=== PATIENT | female | born 1935 | race Caucasian/White ===

== ENCOUNTER 2019-09-01 16:00 | Emergency (ER) | payer OTHER ==
--- NOTE | 2019-09-01 17:16 | RAD REPORT ---
EXAM DESCRIPTION: RAD - Foot Right 3 View - 09/01/2019 4:57 pm CLINICAL HISTORY: Right foot pain FINDINGS: No fracture or dislocation is seen Osteoporosis
[2019-09-01] MEDS ORDERED: ONDANSETRON 4 MG (ODT) TAB ONE (18:18)
[2019-09-01] MEDS ORDERED: TRAMADOL HCL 50 MG TAB ONE (18:19)
--- NOTE | 2019-09-01 18:55 | ER ---
Nurse's Notes [facility] Name: Iman Lagos Age: 84 yrs Sex: Female : 1935 Arrival Date: 09/01/2019 Time: 16:03 Bed 18 Private MD: Diagnosis: Pain in right foot Presentation: 09/01 16:13 Presenting complaint: Patient states: Right foot started hurting this morning, denies jl7 trauma. Transition of care: patient was not received from another setting of care. Onset of symptoms was September 01, 2019. Risk Assessment: Do you want to hurt yourself or someone else? Patient reports no desire to harm self or others. Initial Sepsis Screen: Does the patient meet any 2 criteria? No. Patient's initial sepsis screen is negative. Does the patient have a suspected source of infection? No. Patient's initial sepsis screen is negative. Care prior to arrival: None. 16:13 Method Of Arrival: Ambulatory jl 16:13 Acuity: FAHAD 4 jl7 16:16 Acuity: FAHAD 3 jl7 Triage Assessment: 16:15 General: Appears in no apparent distress. uncomfortable, Behavior is calm, cooperative, jl7 appropriate for age. Pain: Complains of pain in right foot Pain currently is 10 out of 10 on a pain scale. Historical: - Allergies: 16:15 Morphine; jl7 - Home Meds: 16:15 None [Active]; jl7 - PMHx: 16:15 Hypertension; jl7 - PSHx: 16:15 Tonsillectomy; Appendectomy; jl7 - Immunization history:: Adult Immunizations not up to date. - Social history:: Smoking status: Patient denies any tobacco usage or history of. - Ebola Screening: : No symptoms or risks identified at this time. Screenin:15 Abuse screen: Denies threats or abuse. Denies injuries from another. Nutritional bp screening: No deficits noted. Tuberculosis screening: No symptoms or risk factors identified. Fall Risk None identified. Assessment: 16:15 General: SEE TRIAGE NOTE. bp 17:07 Reassessment: XRAY COMPLETE, RESULTS PENDING. NO OBVIOUS S/S OF DISTRESS, VS STABLE. bp Vital Signs: 16:15 BP 197 / 73; Pulse 89; Resp 16 S; Temp 98.4(O); Pulse Ox 98% on R/A; Weight 46.27 kg jl7 (R); Height 5 ft. 2 in. (157.48 cm) (R); Pain 10/10; 18:22 BP 209 / 63; Pulse 81; Resp 16; Pulse Ox 100% ; bp 19:14 BP 173 / 65; Pulse 84; Resp 18; Pulse Ox 99% ; wh 16:15 Body Mass Index 18.66 (46.27 kg, 157.48 cm) 7 ED Course: 16:03 Patient arrived in ED. mr 16:14 Triage completed. jl7 16:15 Arm band placed on right wrist. jl7 16:15 Patient has correct armband on for positive identification. Bed in low position. Call bp light in reach. Side rails up X2. 16:18 Kleber Pearson, RN is Primary Nurse. bp 16:19 Don Kerr NP is PHCP. pm1 16:19 Justine Castellano MD is Attending Physician. pm1 16:57 Foot Right 3 View XRAY In Process Unspecified. EDMS 19:08 No provider procedures requiring assistance completed. Patient did not have IV access wh during this emergency room visit. Administered Medications: 18:15 Drug: traMADol 50 mg Route: PO; bp 19:07 Follow up: Response: No adverse reaction; Pain is decreased; RASS: Alert and Calm (0) 18:15 Drug: Zofran 4 mg Route: PO; bp 19:07 Follow up: Response: No adverse reaction; Nausea is decreased Outcome: 18:55 Discharge ordered by MD. pm1 19:08 Discharged to home via wheelchair, with family. 19:08 Condition: stable 19:08 Discharge instructions given to patient, family, Instructed on discharge instructions, follow up and referral plans. no drinking with medication, no driving heavy equipment, medication usage, POC Demonstrated understanding of instructions, follow-up care, medications, POC Prescriptions given X 2. 19:15 Patient left the ED. Signatures: Dispatcher [employer] EDMI Stephanie Rosa Don Kerr NP DETECTIVE AND INTELLIGENCE ANALYST pm1 Kim Infante, RN RN jl7 Yaneth Franco Kleber Pearson, RN RN bp
--- NOTE | 2019-09-01 18:55 | EDPHYS ---
Physician Documentation [facility] Name: Iman Lagos Age: 84 yrs Sex: Female : 1935 Arrival Date: 09/01/2019 Time: 16:03 Bed 18 Private MD: ED Physician Justine Castellano HPI: 09/01 18:11 This 84 yrs old Female presents to ER via Ambulatory with complaints of Right pm1 Foot Pain. 18:11 The patient presents with pain, that is acute. The complaints affect the right foot. pm1 Context: The problem was sustained at home, resulted from an unknown cause, the patient can partially bear weight, Problem is a result from a previous injury: No. Onset: The symptoms/episode began/occurred today. Modifying factors: The symptoms are alleviated by elevating leg, the symptoms are aggravated by weight bearing. Associated signs and symptoms: Pertinent positives: swelling, Pertinent negatives calf tenderness, nausea, numbness, tingling, vomiting. Treatment prior to arrival includes: no previous treatment. Severity of symptoms: in the emergency department the symptoms are unchanged. The patient has not experienced similar symptoms in the past. It is unknown whether or not the patient has recently seen a physician. Historical: - Allergies: 16:15 Morphine; jl7 - Home Meds: 16:15 None [Active]; jl7 - PMHx: 16:15 Hypertension; jl7 - PSHx: 16:15 Tonsillectomy; Appendectomy; jl7 - Immunization history:: Adult Immunizations not up to date. - Social history:: Smoking status: Patient denies any tobacco usage or history of. - Ebola Screening: : No symptoms or risks identified at this time. ROS: 18:11 Constitutional: Negative for fever, chills, and weight loss, Cardiovascular: Negative pm1 for chest pain, palpitations, and edema, Respiratory: Negative for shortness of breath, cough, wheezing, and pleuritic chest pain, Abdomen/GI: Negative for abdominal pain, nausea, vomiting, diarrhea, and constipation, Back: Negative for injury and pain. 18:11 Skin: Negative for injury, rash, and discoloration, Neuro: Negative for headache, weakness, numbness, tingling, and seizure. 18:11 MS/extremity: Positive for pain, swelling, of the dorsum of right foot, Negative for decreased range of motion, deformity. Exam: 18:11 Constitutional: This is a well developed, well nourished patient who is awake, alert, pm1 and in no acute distress. Head/Face: Normocephalic, atraumatic. Neck: Trachea midline, no thyromegaly or masses palpated, and no cervical lymphadenopathy. Supple, full range of motion without nuchal rigidity, or vertebral point tenderness. No Meningismus. Chest/axilla: Normal chest wall appearance and motion. Nontender with no deformity. No lesions are appreciated. Cardiovascular: Regular rate and rhythm with a normal S1 and S2. No gallops, murmurs, or rubs. No pulse deficits. Respiratory: Lungs have equal breath sounds bilaterally, clear to auscultation and percussion. No rales, rhonchi or wheezes noted. No increased work of breathing, no retractions or nasal flaring. Abdomen/GI: Soft, non-tender, with normal bowel sounds. No distension or tympany. No guarding or rebound. No evidence of tenderness throughout. Back: No spinal tenderness. No costovertebral tenderness. Full range of motion. Skin: Warm, dry with normal turgor. Normal color with no rashes, no lesions, and no evidence of cellulitis. 18:11 Musculoskeletal/extremity: Extremities: grossly normal except: noted in the dorsum of right foot: tenderness, mild swelling, There is no evidence of decreased ROM, deformity, tenderness with palpation to arch of right foot, Circulation is intact in all extremities. Pulses: noted to be 2+ in the right dorsalis pedis artery, Sensation intact. 18:11 Neuro: Orientation: is normal, Motor: is normal, moves all fours, strength is normal, strength is 5/5 in all extremities. Vital Signs: 16:15 BP 197 / 73; Pulse 89; Resp 16 S; Temp 98.4(O); Pulse Ox 98% on R/A; Weight 46.27 kg jl7 (R); Height 5 ft. 2 in. (157.48 cm) (R); Pain 10/10; 18:22 BP 209 / 63; Pulse 81; Resp 16; Pulse Ox 100% ; bp 19:14 BP 173 / 65; Pulse 84; Resp 18; Pulse Ox 99% ; wh 16:15 Body Mass Index 18.66 (46.27 kg, 157.48 cm) jl7 MDM: 16:36 Patient medically screened. pm1 18:11 Data reviewed: vital signs. Data interpreted: Pulse oximetry: on room air is 98 %. pm1 Interpretation: normal. 18:54 Counseling: I had a detailed discussion with the patient and/or guardian regarding: the pm1 historical points, exam findings, and any diagnostic results supporting the discharge/admit diagnosis, radiology results, the need for outpatient follow up, for definitive care, a psychological operations officer, to return to the emergency department if symptoms worsen or persist or if there are any questions or concerns that arise at home. 09/01 16:43 Order name: Foot Right 3 View XRAY; Complete Time: 17:23 pm1 Administered Medications: 18:15 Drug: traMADol 50 mg Route: PO; bp 19:07 Follow up: Response: No adverse reaction; Pain is decreased; RASS: Alert and Calm (0) 18:15 Drug: Zofran 4 mg Route: PO; bp 19:07 Follow up: Response: No adverse reaction; Nausea is decreased Disposition: 09/02 15:19 Co-signature as Attending Physician, Justine Castellano MD. ma2 Disposition: 09/01/19 18:55 Discharged to Home. Impression: Pain in right foot. - Condition is Stable. - Discharge Instructions: Plantar Fasciitis, Foot Pain. - Prescriptions for Zofran 4 mg Oral Tablet - take 1 tablet by ORAL route every 8 hours As needed; 20 tablet. Tramadol 50 mg Oral Tablet - take 1 tablet by ORAL route every 8 hours As needed as needed; 20 tablet. - Medication Reconciliation Form, Thank You Letter, Antibiotic Education, Prescription Opioid Use form. - Follow up: Emergency Department; When: As needed; Reason: Worsening of condition. Follow up: Private Physician; When: 2 - 3 days; Reason: Recheck today's complaints, Continuance of care, Re-evaluation by your physician. - Problem is new. - Symptoms have improved. Signatures: Dispatcher [employer] EDMS Don Kerr, DRIER AND GRINDER TENDER DRIER AND GRINDER TENDER pm1 Kim Infante RN RN jl7 Yaneth Franco Kleber Pearson RN RN bp Alzahri, Mohammad, MD MD ma2 Corrections: (The following items were deleted from the chart) 09/01 19:15 18:55 09/01/2019 18:55 Discharged to Home. Impression: Pain in right foot. Condition is wh Stable. Forms are Medication Reconciliation Form, Thank You Letter, Antibiotic Education, Prescription Opioid Use. Follow up: Emergency Department; When: As needed; Reason: Worsening of condition. Follow up: Private Physician; When: 2 - 3 days; Reason: Recheck today's complaints, Continuance of care, Re-evaluation by your physician. Problem is new. Symptoms have improved. pm1
[2019-09-01 19:25] VITALS: TEMP 98.4
[2019-09-01 19:28] VITALS: BP 173/65; O2SAT 99
== END 2019-09-01 19:15 | disposition home or self-care (01) ==
LOC: ER 16:00
DX: M79.671 Pain in right foot (principal); I10 Essential (primary) hypertension; Z88.5 Allergy status to narcotic agent
CPT/HCPCS: 99283

== ENCOUNTER 2022-07-21 06:31 | Day surgery (SDC) | payer OTHER ==
[2022-07-21] MEDS ORDERED: Ringers Lactate 1,000 ML IV ONE (06:48)
[2022-07-21] MEDS ORDERED: LIDOCAINE 1% MPF 5 ML VIAL ONE (07:25)
[2022-07-21] MEDS ORDERED: propofoL 200 MG/20 ML VIAL IV ONE (07:25)
--- NOTE | 2022-07-21 08:28 | ENDO RPT ---
[address], [address] EGD WITH DILATION PROCEDURE REPORT EXAM DATE: 07/21/2022 PATIENT NAME: Iman Lagos V. MR#: [id number] BIRTHDATE: 1935 ATTENDING: Watson [address] Dr STATUS: outpatient DOUGH MOLDER: Allegra Hannah and Flor Walker RN INDICATIONS: The patient is a 87 yr old Female here for an EGD with dilation due to odynophagia, globus - lump in throat, and weight loss PROCEDURE PERFORMED: EGD with biopsy and EGD with dilatation over guidewire MEDICATIONS: Per Anesthesia. TOPICAL ANESTHETIC: none CONSENT: The patient understands the risks and benefits of the procedure and understands that these risks include, but are not limited to: sedation, allergic reaction, infection, perforation and/or bleeding. Alternative means of evaluation and treatment include, among others: physical exam, x-rays, and/or surgical intervention. The patient elects to proceed with this endoscopic procedure. DESCRIPTION OF PROCEDURE: During intra-op preparation period all mechanical medical equipment was checked for proper function. Hand hygiene and appropriate measures for infection prevention was taken. After the risks, benefits and alternatives of the procedure were thoroughly explained, Informed consent was verified, confirmed and timeout was successfully executed by the treatment team. The patient was anesthetized with topical anesthesia and the EG-[id number] ([id number]) endoscope was introduced through the mouth and advanced to the second portion of the duodenum. The instrument was slowly withdrawn as the mucosa was fully examined. A small sldiing hiatal hernia was found (only seen on intubation, not retroflexion view). Mild gastritis was found in the antrum. Multiple biopsies were obtained and sent to pathology. rule out eosinophilic esophagitis . DILATOR: SIZE(S): RESISTANCE: HEME: APPEARANCE: Dilator: Savary over guidewire Size(s): 14 mm Resistance: minimal Heme: none COMMENT: Retroflexed views revealed no abnormalities. ADVERSE EVENTS: There were no complications. IMPRESSIONS: 1. Non-obstructive dysphagia - s/p 14 mm Savary dilatation subsequent esophageal biopsies to rule out eosinophilic esophagitis 2. Small sliding hiatal hernia 3. Mild gastritis in the antrum, s/p biopsies RECOMMENDATIONS: 1. await biopsy results 2. acid suppression therapy 3. anti-reflux regimen REPEAT EXAM: Watson Garcia Dr eSigned: Watson Garcia Dr 07/21/2022 8:28 AM cc: CPT CODES: ICD9 CODES: PATIENT NAME: Iman Lagos V. MR#: [id number]
[2022-07-21 09:07] VITALS: BP 126/52; TEMP 96.6; O2SAT 99
== END 2022-07-21 08:57 | disposition home or self-care (01) ==
LOC: OR 06:31
PROVIDERS: ATTEND Internal Medicine Gastroenterology
PROC: 0DB68ZX Excision of Stomach, Via Natural or Artificial Opening Endoscopic, Diagnostic (ICD-10-PCS; 2022-07-21)
PROC: 0DB58ZX Excision of Esophagus, Via Natural or Artificial Opening Endoscopic, Diagnostic (ICD-10-PCS; principal; 2022-07-21 07:30)
DX: R13.10 Dysphagia, unspecified (principal); F45.8 Other somatoform disorders; K29.50 Unspecified chronic gastritis without bleeding; K44.9 Diaphragmatic hernia without obstruction or gangrene
CPT/HCPCS: 88305; 88312; C1769; J2001; J2704; J7120